=== PATIENT | male | born 1955 | race Caucasian/White ===

== ENCOUNTER → 2018-03-08 | Outpatient (CLI) | payer MEDICARE ==
[2018-03-08 13:04] LABS: ALBUMIN 3.5 GM/DL (3.2-5.2); ALKALINE PHOSPHATASE 55 U/L (45-117); ALT/SGPT 23 U/L (12-78); ANION GAP 5 MEQ/L (8-16); AST/SGOT 18 U/L (7-37); BILIRUBIN,TOTAL 0.5 MG/DL (0.2-1.0); BLOOD UREA NITROGEN 14 MG/DL (7-18); CALCIUM LEVEL 8.3 MG/DL (8.8-10.2); CARBON DIOXIDE LEVEL 26 MEQ/L (21-32); CHLORIDE LEVEL 111 MEQ/L (98-107); CHOLESTEROL LEVEL 173 MG/DL (<200); CHOLESTEROL RISK RATIO 3.931 (<5); CREATININE FOR GFR 1.04 MG/DL (0.70-1.30); GLOMERULAR FILTRATION RATE > 60.0 (>49); GLUCOSE, FASTING 94 MG/DL (70-100); HDL CHOLESTEROL 44 MG/DL (>40); LDL CHOLESTEROL 115.8 MG/DL (<100); NON-HDL-C 129 MG/DL; POTASSIUM SERUM 4.3 MEQ/L (3.5-5.1); SODIUM LEVEL 142 MEQ/L (136-145); TOTAL PROTEIN 7.4 GM/DL (6.4-8.2); TRIGLYCERIDES LEVEL 66 MG/DL (<150)
== END ==
LOC: M WUC 08:37
DX: Z00.00 Encounter for general adult medical examination without abnormal findings (principal)
CPT/HCPCS: 80053

== ENCOUNTER → 2019-08-05 | Outpatient (REF) | payer MEDICARE ==
[2019-08-05 12:05] LABS: APPEARANCE, URINE CLEAR (CLEAR); BACTERIA, URINE AUTO NEGATIVE (NEGATIVE); BILIRUBIN, URINE AUTO NEGATIVE (NEGATIVE); BLOOD, URINE BLOOD NEGATIVE (NEGATIVE); COLOR, URINE YELLOW (YELLOW); GLUCOSE, URINE (UA) AUTO NEGATIVE (NEGATIVE); KETONE, URINE AUTO NEGATIVE (NEGATIVE); LEUKOCYTE ESTERASE, URINE AUTO NEGATIVE (NEGATIVE); MUCUS, URINE SMALL (NEGATIVE); NITRITE, URINE AUTO NEGATIVE (NEGATIVE); PROTEIN, URINE AUTO NEGATIVE (NEGATIVE); RBC, URINE AUTO 1 /HPF (0-3); SPECIFIC GRAVITY URINE AUTO 1.015 (1.002-1.035); SQUAMOUS EPITHELIAL CELL UR AU 0 /HPF (0-6); UROBILINOGEN, URINE AUTO 0.2 mg/dL (0.0-2.0); WBC, URINE AUTO 1 /HPF (0-3)
[2019-08-05 15:27] LABS: BASO # 0.1 10^3/uL (0.0-0.2); EOS # 0.5 10^3/uL (0.0-0.5); EOS % 7.8 % (0.0-3.0); HEMATOCRIT 42.6 % (42.0-52.0); HEMOGLOBIN 14.4 g/dl (13.5-17.5); LYMPH # 3.1 10^3/uL (1.5-5.0); LYMPH % 46.6 % (24.0-44.0); MEAN CORPUSCULAR HEMOGLOBIN 32.7 pg (27.0-33.0); MEAN CORPUSCULAR HGB CONC 33.8 g/dl (32.0-36.5); MEAN CORPUSCULAR VOLUME 96.8 fl (80.0-96.0); MONO # 0.6 10^3/uL (0.0-0.8); MONO % 8.2 % (0.0-5.0); NEUTROPHILS # 2.4 10^3/uL (1.5-8.5); NEUTROPHILS % 36.3 % (36.0-66.0); PLATELET COUNT, AUTOMATED 192 10^3/uL (150-450); WHITE BLOOD COUNT 6.7 10^3/uL (4.0-10.0)
[2019-08-05 15:40] LABS: ALBUMIN 3.5 GM/DL (3.2-5.2); ALT/SGPT 25 U/L (12-78); BILIRUBIN,TOTAL 0.8 MG/DL (0.2-1.0); BLOOD UREA NITROGEN 16 MG/DL (7-18); CALCIUM LEVEL 8.6 MG/DL (8.8-10.2); CARBON DIOXIDE LEVEL 28 MEQ/L (21-32); CHLORIDE LEVEL 106 MEQ/L (98-107); CHOLESTEROL LEVEL 199 MG/DL (<200); CHOLESTEROL RISK RATIO 4.522 (<5); CREATININE FOR GFR 1.05 MG/DL (0.70-1.30); FREE T4 0.82 NG/DL (0.76-1.46); GLOMERULAR FILTRATION RATE > 60.0 (>49); GLUCOSE, FASTING 90 MG/DL (70-100); HDL CHOLESTEROL 44 MG/DL (>40); LDL CHOLESTEROL 130 MG/DL (<100); NON-HDL-C 155 MG/DL; POTASSIUM SERUM 4.3 MEQ/L (3.5-5.1); PROSTATIC SPECIFIC AG MONITOR 0.68 NG/ML (< 4.00); SODIUM LEVEL 139 MEQ/L (136-145); TOTAL PROTEIN 7.4 GM/DL (6.4-8.2); TRIGLYCERIDES LEVEL 127 MG/DL (<150)
[2019-08-05 15:42] LABS: HEMOGLOBIN A1c 5.9 %
[2019-08-05 15:43] LABS: TOTAL 25(OH) VITAMIN D 43.1 NG/ML (30.0-100.0)
[2019-08-09 00:06] LABS: Lyme Disease IgG/IgM Antibodie <0.91 ISR (0.00-0.90); Lyme Disease IgM Ab Quantitati <0.80 index (0.00-0.79)
== END ==
LOC: M LAB REF 11:40
PROVIDERS: ATTEND Family Medicine
DX: M25.549 Pain in joints of unspecified hand (principal); R53.83 Other fatigue

== ENCOUNTER → 2020-05-17 | Outpatient (CLI) | payer MEDICARE ==
[2020-05-17 09:48] LABS: ALBUMIN 3.6 GM/DL (3.2-5.2); ALT/SGPT 28 U/L (12-78); BILIRUBIN,TOTAL 0.6 MG/DL (0.2-1.0); BLOOD UREA NITROGEN 17 MG/DL (7-18); CALCIUM LEVEL 8.9 MG/DL (8.8-10.2); CARBON DIOXIDE LEVEL 29 MEQ/L (21-32); CHLORIDE LEVEL 109 MEQ/L (98-107); CHOLESTEROL LEVEL 176 MG/DL (<200); CHOLESTEROL RISK RATIO 3.911 (<5); CREATININE FOR GFR 1.06 MG/DL (0.70-1.30); GLOMERULAR FILTRATION RATE > 60.0 (>49); GLUCOSE, FASTING 98 MG/DL (70-100); HDL CHOLESTEROL 45 MG/DL (>40); LDL CHOLESTEROL 112 MG/DL (<100); NON-HDL-C 131 MG/DL; POTASSIUM SERUM 4.5 MEQ/L (3.5-5.1); SODIUM LEVEL 142 MEQ/L (136-145); TOTAL PROTEIN 7.4 GM/DL (6.4-8.2); TRIGLYCERIDES LEVEL 95 MG/DL (<150)
== END ==
LOC: M WUC 08:04
PROVIDERS: ATTEND Physician Assistant Medical
DX: E78.2 Mixed hyperlipidemia (principal)

== ENCOUNTER → 2021-06-16 | Outpatient (REF) | payer MEDICARE | LOC: M WUC 19:54 | PROVIDERS: ATTEND Physician Assistant | DX: R30.0 Dysuria (principal) ==

== ENCOUNTER → 2021-06-27 | Outpatient (CLI) | payer MEDICARE ==
[2021-06-27 10:42] LABS: ALBUMIN 3.4 GM/DL (3.2-5.2); ALT/SGPT 30 U/L (12-78); BILIRUBIN,TOTAL 0.6 MG/DL (0.2-1.0); BLOOD UREA NITROGEN 16 MG/DL (7-18); CALCIUM LEVEL 8.4 MG/DL (8.8-10.2); CARBON DIOXIDE LEVEL 26 MEQ/L (21-32); CHLORIDE LEVEL 110 MEQ/L (98-107); CHOLESTEROL LEVEL 186 MG/DL (<200); CHOLESTEROL RISK RATIO 3.795 (<5); CREATININE FOR GFR 1.04 MG/DL (0.70-1.30); GLOMERULAR FILTRATION RATE > 60.0 (>49); GLUCOSE, FASTING 97 MG/DL (70-100); HDL CHOLESTEROL 49 MG/DL (>40); LDL CHOLESTEROL 121 MG/DL (<100); NON-HDL-C 137 MG/DL; POTASSIUM SERUM 4.4 MEQ/L (3.5-5.1); SODIUM LEVEL 140 MEQ/L (136-145); TOTAL PROTEIN 6.9 GM/DL (6.4-8.2); TRIGLYCERIDES LEVEL 79 MG/DL (<150)
== END ==
LOC: M WUC 08:21
PROVIDERS: ATTEND Nurse Practitioner Family
DX: E78.2 Mixed hyperlipidemia (principal)

== ENCOUNTER 2021-08-06 18:42 | Emergency (ER) | payer MEDICARE, OTHER ==
[~2021-08-06] VITALS: Ht 185.4 cm; Wt 111.0 kg
--- NOTE | 2021-08-07 05:29 | REPVR ---
PROCEDURE INFORMATION: Exam: XR Right Knee Exam date and time: 08/07/2021 3:21 AM Age: 66 years old Clinical indication: Pain; Knee; Right; Additional info: Fall TECHNIQUE: Imaging protocol: XR Right knee. Views: 4 or more views. COMPARISON: No relevant prior studies available. FINDINGS: Femorotibial alignment and spacing is maintained. Proximal tibiofibular congruency is preserved. 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 There is minimal patellofemoral joint space loss. Patellofemoral joint is anatomically aligned. No significant patellar tilt. There is mild patella baja. There is well corticated bony proliferative change along the anteroinferior patella, likely related to chronic enthesopathic change at the patellar tendon attachment. No acute osseous injury is seen. No significant suprapatellar effusion is seen. Mild prepatellar soft tissue swelling cannot be excluded. This could be related to soft tissue injury, edema, infection or bursitis. Clinical correlation is advised. Calcifications are seen within the visualized right lower leg, likely related to atherosclerosis. IMPRESSION: No acute osseous injury. Other findings discussed above. Electronically signed by: Ron Palacio On 08/07/2021 05:29:12 AM
--- NOTE | 2021-08-07 05:35 | REPVR ---
PROCEDURE INFORMATION: Exam: US Duplex Right Lower Extremity Veins, Limited Exam date and time: 08/07/2021 4:50 AM Age: 66 years old Clinical indication: Edema, localized; Lower extremity, right; Additional info: Thigh swelling after fall TECHNIQUE: Imaging protocol: Real-time Duplex ultrasound of the Right Lower Extremity with 2-D guillen scale, color Doppler flow and spectral waveform analysis with image documentation. Limited exam was focused on the right lower extremity veins. COMPARISON: None FINDINGS: There is spontaneous, phasic color flow and compressibility of the deep veins. Augmentation to flow is noted. There is no evidence of DVT in the evaluated right lower extremity. The visualized proximal right greater saphenous vein is patent. Limited evaluation of the contralateral left groin demonstrates the left common femoral vein and visualized proximal greater saphenous vein to be patent. No perivenous soft tissue fluid collection seen within the visualized field of view. IMPRESSION: No evidence of DVT in the right lower extremity. Findings discussed above in detail. Electronically signed by: Ron Palacio On 08/07/2021 05:34:51 AM
[2021-08-07 06:26] VITALS: BP 130/81
== END 2021-08-07 06:29 | disposition home or self-care (01) ==
LOC: M ED 18:42
DX: S70.11XA Contusion of right thigh, initial encounter (principal); W22.8XXA Striking against or struck by other objects, initial encounter; Y92.018 Other place in single-family (private) house as the place of occurrence of the external cause; Z88.8 Allergy status to other drugs, medicaments and biological substances

== ENCOUNTER → 2023-08-04 | Outpatient (CLI) | payer MEDICARE, OTHER ==
[2023-08-04 11:13] LABS: ALKALINE PHOSPHATASE 53 U/L (46-116); ALT/SGPT 28 U/L (7.0-40); AST/SGOT 19 U/L (<34); BILIRUBIN,TOTAL 0.6 MG/DL (0.3-1.2); BLOOD UREA NITROGEN 19 MG/DL (9-23); CARBON DIOXIDE LEVEL 26 MMOL/L (20-31); CHLORIDE LEVEL 106 MMOL/L (98-107); CHOLESTEROL LEVEL 181 MG/DL (<200); CHOLESTEROL RISK RATIO 3.72 (<5); CREATININE FOR GFR 1.01 MG/DL (0.70-1.30); GLOMERULAR FILTRATION RATE > 60.0 (>42); GLUCOSE, FASTING 91 MG/DL (74-106); HDL CHOLESTEROL 48.6 MG/DL (>40); NON-HDL-C 132.4 MG/DL; POTASSIUM SERUM 4.7 MMOL/L (3.5-5.1); SODIUM LEVEL 140 MMOL/L (136-145); TOTAL PROTEIN 7.3 G/DL (5.7-8.2); TRIGLYCERIDES LEVEL 102 MG/DL (<150)
[2023-08-04 15:43] LABS: ALBUMIN 3.6 G/DL (3.2-5.2)
== END ==
LOC: M WUC 08:06
PROVIDERS: ATTEND Nurse Practitioner Family
DX: E78.2 Mixed hyperlipidemia (principal)

== ENCOUNTER → 2023-08-16 | Outpatient (REF) | payer MEDICARE, OTHER | LOC: M WUC 20:05 | PROVIDERS: ATTEND Registered Nurse | DX: L03.115 Cellulitis of right lower limb (principal) ==

== ENCOUNTER → 2024-01-04 | Outpatient (REF) | payer MEDICARE, OTHER | LOC: M LABWUC 18:21 | PROVIDERS: ATTEND Nurse Practitioner Family | DX: N52.9 Male erectile dysfunction, unspecified (principal); Z12.5 Encounter for screening for malignant neoplasm of prostate | CPT/HCPCS: 36415; G0103 ==

== ENCOUNTER → 2024-01-29 | Outpatient (REF) | payer MEDICARE, OTHER | LOC: M LAB REF 18:37 | PROVIDERS: ATTEND Physician Assistant | DX: R30.0 Dysuria (principal) ==

== ENCOUNTER → 2024-08-11 | Outpatient (CLI) | payer MEDICARE, OTHER ==
[2024-08-11 13:24] LABS: BASO # 0.1 10^3/uL (0.0-0.2); BASO % 0.6 % (0.0-1.0); EOS # 0.3 10^3/uL (0.0-0.5); EOS % 3.2 % (0.0-3.0); HEMATOCRIT 40.7 % (42.0-52.0); HEMOGLOBIN 13.3 g/dl (13.5-17.5); LYMPH # 2.4 10^3/uL (1.5-5.0); LYMPH % 29.1 % (24.0-44.0); MEAN CORPUSCULAR HEMOGLOBIN 31.9 pg (27.0-33.0); MEAN CORPUSCULAR HGB CONC 32.7 g/dl (32.0-36.5); MEAN CORPUSCULAR VOLUME 97.6 fl (80.0-96.0); MONO # 0.8 10^3/uL (0.0-0.8); MONO % 9.3 % (2.0-8.0); NEUTROPHILS # 4.6 10^3/uL (1.5-8.5); NEUTROPHILS % 57.3 % (36.0-66.0); PLATELET COUNT, AUTOMATED 188 10^3/uL (150-450); RED BLOOD COUNT 4.17 10^6/uL (4.30-6.10); WHITE BLOOD COUNT 8.1 10^3/uL (4.0-10.0)
[2024-08-11 13:28] LABS: ALBUMIN 3.6 G/DL (3.2-5.2); ALKALINE PHOSPHATASE 63 U/L (46-116); ALT/SGPT 22 U/L (7.0-40); AST/SGOT 15 U/L (<34); BILIRUBIN,TOTAL 0.7 MG/DL (0.3-1.2); BLOOD UREA NITROGEN 16 MG/DL (9-23); CARBON DIOXIDE LEVEL 29 MMOL/L (20-31); CHLORIDE LEVEL 109 MMOL/L (98-107); CHOLESTEROL LEVEL 182 MG/DL (<200); CHOLESTEROL RISK RATIO 3.92 (<5); CREATININE FOR GFR 0.94 MG/DL (0.70-1.30); GLOMERULAR FILTRATION RATE > 60.0 (>42); GLUCOSE, FASTING 97 MG/DL (74-106); HDL CHOLESTEROL 46.4 MG/DL (>40); LDL CHOLESTEROL 116.6 MG/DL (<100); NON-HDL-C 135.6 MG/DL; POTASSIUM SERUM 4.4 MMOL/L (3.5-5.1); SODIUM LEVEL 140 MMOL/L (136-145); TOTAL PROTEIN 7.3 G/DL (5.7-8.2); TRIGLYCERIDES LEVEL 95 MG/DL (<150)
== END ==
LOC: M WUC 09:27
PROVIDERS: ATTEND Nurse Practitioner Family
DX: Z00.00 Encounter for general adult medical examination without abnormal findings (principal); E78.2 Mixed hyperlipidemia

== ENCOUNTER → 2025-08-10 | Outpatient (CLI) | payer MEDICARE, MEDICAID ==
[2025-08-10 12:52] LABS: ALT/SGPT 29.0 U/L (7.0-40); AST/SGOT 23.0 U/L (<34); CALCIUM LEVEL 8.6 MG/DL (8.3-10.6); CARBON DIOXIDE LEVEL 28.0 MMOL/L (20-31); CHLORIDE LEVEL 106.0 MMOL/L (98-107); CHOLESTEROL LEVEL 200.0 MG/DL (<200); CHOLESTEROL RISK RATIO 3.8 (<5); CREATININE FOR GFR 0.97 MG/DL (0.70-1.30); GLOMERULAR FILTRATION RATE 82.9 (>42); LDL CHOLESTEROL 126.7 MG/DL (<100); NON-HDL-C 147.5 MG/DL; POTASSIUM SERUM 4.4 MMOL/L (3.5-5.1); SODIUM LEVEL 143.0 MMOL/L (136-145); TRIGLYCERIDES LEVEL 104.0 MG/DL (<150)
== END ==
LOC: M WUC 08:43
PROVIDERS: ATTEND Nurse Practitioner Family
DX: E78.2 Mixed hyperlipidemia (principal)